=== PATIENT | female | born 2005 | race Two or more races ===

== ENCOUNTER 2024-12-22 15:53 | Emergency (ER) | payer MEDICAID, SELFPAY ==
[2024-12-22 16:06] VITALS: BP 119/67; PULSE 90
[2024-12-22 16:07] VITALS: BP 134/68; PULSE 90
[2024-12-22 16:09] VITALS: BP 134/66; PULSE 90; RESP 18; RESP 99; TEMP 36.9; BMI 38.6
[2024-12-22 16:20] VITALS: BP 132/61; PULSE 101
[2024-12-22 16:40] VITALS: RESP 20; TEMP 36.7; O2SAT 99
[2024-12-22 17:27] VITALS: BMI 38.6
[2024-12-22 18:13] VITALS: BP 123/78; PULSE 112; RESP 17; TEMP 36.8; O2SAT 98
--- NOTE | 2024-12-22 18:36 | EDNOTE_ITS ---
ED General RME/HPI General Chief complaint: General Adult/Misc Complain Stated complaint: MULTIPLE COMPLAINTS, + PREG SENT FROM [facility] Time Seen by Provider: 12/22/24 18:20 Arrival date/time: 12/22/24 17:25 RME / HPI RME / HPI narrative: 19-year-old female patient was sent to us from labor and delivery for evaluation regarding anxiety-like symptoms. Patient was doing shopping today and suddenly developed anxiety-like symptoms. Patient told me that she is having jittery, shortness of breath, palpitations, lasting for several minutes. Patient is currently not taking any anxiety medication. Patient is 36 weeks . Denies any abdominal pain vaginal bleeding spotting dysuria or other complaints. Patient was initially seen in labor and delivery and was cleared and sent to us. Currently patient is not having any symptoms. Patient is telling me that she is ready to go home. Related Data Home Medications ?Medication ?Instructions ?Recorded ?Confirmed vitamin-ferrous fumarate 1 tab PO QDAY 09/01/22 28 mg iron-folic acid 800 mcg tablet ( Vitamins with Minerals) ferrous sulfate 325 mg (65 mg 325 mg PO BID 09/02/22 0 09/02/22 iron) tablet (Iron (ferrous sulfate)) Previous Rx's ?Medication ?Instructions ?Recorded methylprednisolone 4 mg tablets in 4 mg PO .as directe d #21 tabs 12/14/23 a dose pack (Medrol (Cj)) triamcinolone acetonide 0.5 % 1 applic topical BID #15 grams 12/14/23 topical cream Allergies Allergy/AdvReac Type Severity Reaction Status Date / Time No Known Allergies Allergy Unverified 12/22/24 17:31 Review of Systems Review of Systems Narrative Review of Systems: Review of system reviewed and within normal limits except mentioned in HPI ED Exam Narrative Physical exam: VITAL SIGNS: Reviewed. GENERAL APPEARANCE: Alert and interactive, follows commands, no acute distress, HEAD AND FACE: Non-traumatic. ENT: PERRL, pink conjunctivitis, eyelid no trauma, Mucous membrane moist. NECK: Supple, nontender, no nuchal rigidity. CHEST: No tenderness, no crepitus, no paradoxical movement, no retractions. LUNGS: Clear, well ventilated, symmetric, no rales, no wheezing, no ronchi, no stridor, good breath sounds bilaterally. HEART: Regular rate, regular rhythm, no murmur, no gallops. ABDOMEN: Soft, positive bowel sounds, gravid abdomen, no guarding, nontender, no rebound, no masses, RECTAL: Deferred. GENITAL: Deferred. NEUROLOGICAL: Gross motor function intact sensory function intact, Appropriate for age. MUSCULOSKELETAL: low back nontender, full range of motion. EXTREMITIES: Nontender, full range of motion. SKIN: Color pink, dry, no rash, no lacerations, no abrasions, no contusions. LYMPHATICS: Deferred. Course Quality Measures none Vital Signs Vital signs: Vital Signs Temperature 98.2 F 12/22/24 18:13 Pulse Rate 112 H 12/22/24 18:13 Respiratory Rate 17 12/22/24 18:13 Blood Pressure 123/78 12/22/24 18:13 Pulse Oximetry (%) 98 12/22/24 18:13 Oxygen Delivery Method Room Air 12/22/24 18:13 Discharge Plan Plan Patient Disposition: HOME (Self Care) Discharge Disposition comment: Stable Prescriptions/Referrals Prescriptions/Med Rec: No Action vit-iron fum-folic ac [ Vitamin with Minerals] 28 mg iron- 800 mcg Tablet 1 tab PO QDAY ferrous sulfate [Iron (ferrous sulfate)] 325 mg (65 mg iron) Tablet 325 mg PO BID methylprednisolone [Medrol (Cj)] 4 mg tablets,dose pack 4 mg PO .as directed Qty: 21 0RF triamcinolone acetonide 0.5 % cream 1 applic topical BID Qty: 15 0RF Referrals: No Primary/Family,Physician [Primary Care Provider] - In 1 week Problem List Clinical Impression: and not yet delivered in third trimester, Anxiety Patient/Caregiver Discharge Instructions Discharge Activity: activity as tolerated Education Materials: ED Anxiety Reaction Additional Instructions: Thank you for the opportunity for serving you today. You are stable for discharged . You are advised to: Follow-up with your CAR [facility]ER in 1 to 2 days Return to ED for worsening of symptoms Increase oral fluids Take [id number] Benadryl as needed for your anxiety Print Language: Romanian Stand Alone Forms: Rosemarie Award Info., Patient Portal Info Letter TESFAYE/MOMO Supervising Physician STEPHEN Supervising Physician: MD Merry MDM Narrative MDM hospital course: 19-year-old female patient was sent to us from labor and delivery for evaluation regarding anxiety-like symptoms. Patient was doing shopping today and suddenly developed anxiety-like symptoms. Patient told me that she is having jittery, shortness of breath, palpitations, lasting for several minutes. Patient is currently not taking any anxiety medication. Patient is 36 weeks . Denies any abdominal pain vaginal bleeding spotting dysuria or other complaints. Patient was initially seen in labor and delivery and was cleared and sent to us. Currently patient is not having any symptoms. Patient is telling me that she is ready to go home. Imaging workup is not needed at this time patient is not having any symptoms on my initial evaluation. No recurrence of anxiety-like symptoms noted while in the emergency room. Patient was advised to take [id number] Benadryl for recurrence of symptoms. Patient is telling me that she is ready to go home. She was cleared from labor and delivery.
--- NOTE | 2024-12-22 19:00 | PC.NURSE ---
NO ANSWER FOR DC PAPERWORK
--- NOTE | 2024-12-22 19:30 | PC.NURSE ---
NO ANSWER FOR DC PAPERWORK
== END 2024-12-22 19:31 | disposition left against medical advice (07) ==
LOC: S4SX 16:16 → SERX 17:13 → S4SX 12-23 06:40
PROVIDERS: Emergency Provider Obstetrics & Gynecology; Referring Provider Obstetrics & Gynecology
DX: O99.343 Other mental disorders complicating pregnancy, third trimester (principal); Z3A.36 36 weeks gestation of pregnancy; F41.9 Anxiety disorder, unspecified
CPT/HCPCS: 59025; 99283

== ENCOUNTER 2024-12-28 10:55 | Outpatient (AMB) | payer MEDICAID, SELFPAY ==
[2024-12-28 11:47] VITALS: BP 113/73; PULSE 100; RESP 20; TEMP 36.6; O2SAT 98; BMI 37.7
--- NOTE | 2024-12-28 11:47 | OBCLNT_ITS ---
Vital Signs 12/28/24 11:47 Height 1.63 m Height Method Stated Weight 100.301 kg Weight Measurement Method Standing Scale BMI 37.7 BP 113/73 Blood Pressure Source Automatic Cuff Blood Pressure Location Left Upper Arm Position Sitting Respiration 20 Pulse 100 Pulse Source Monitor Temp 97.9 F Temp Source Oral Pulse Oximetry (%) 98 Oxygen Delivery Method Room Air Allergies/Home Meds Allergies & Medications Allergies No Known Allergies Allergy (Verified 12/28/24 11:48) Medication Reconciliation vitamin-ferrous fumarate 28 mg iron-folic acid 800 mcg tablet ( Vitamins with Minerals) 1 tab PO QDAY 09/01/22 [History Confirmed 12/28/24] ferrous sulfate 325 mg (65 mg iron) tablet (Iron (ferrous sulfate)) 325 mg PO BID 09/02/22 [History Confirmed 12/28/24] methylprednisolone 4 mg tablets in a dose pack (Medrol (Cj)) 4 mg PO .as directed #21 tabs 12/14/23 [Rx Confirmed 12/28/24] triamcinolone acetonide 0.5 % topical cream 1 applic topical BID #15 grams 12/14/23 [Rx Confirmed 12/28/24] Intake Visit Data Collection New Patient or Established: Established Patient (seen at [facility] within 3 years) Reason for Visit:: INITIAL CARE Seen by Clinical Staff ONLY (RN/MA): No Finished Goods Inspector Required: No Do You Feel Safe at Home: Yes Authorities Contacted: N/A PCP or OBGYN visit in last 3 months: Yes Hx Now: Yes Are you currently on any form of Control: No Pain Present Currently: Yes Pain Location: Abdomen (LOWER ABDOMEN) Pain Scale Used: High-Ladd/Numerical Pain scale:: 0 Smoking Status Smoking Status: Never smoker Questionnaires Covid-19 Vaccine Questionnaire Has patient been vacinated for Covid-19 Have you been vacinated for Covid-19: Yes PHQ-9 PHQ-2 Over the last 2 weeks, how often have you been bothered by any of the following problems? 1. Little interest or pleasure in doing things: not at all 2. Feeling down, depressed, or hopeless: not at all Total score: 0 PHQ-9 3. Trouble falling or staying asleep, or sleeping too much: Not at all 4. Feeling tired or having little energy: Not at all 5. Poor appetite or overeating: Not at all 6. Feeling bad about yourself - or that you are a failure or have let yourself or your family down: Not at all 7. Trouble concentrating on things, such as reading the newspaper or watching television: Not at all 8. Moving or speaking so slowly that other people could have noticed? - Or the opposite - being so fidgety or restless that you have been moving around a lot more than usual: not at all 9. Thoughts that you would be better off or of hurting yourself in some way: Not at all Total score: 0 Source: Developed by Drs. Benjamin Ewing, Eryn Villalta, Pedro Pablo Perez and colleagues, with an educational pradip from [employer]. 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: Past Medical History Past Medical History: No Hx Neurological Disorders, No Hx Cardiac Disorders, No Hx Cancer, No Hx Blood Disorders, No Hx Anemia, No Hx Gastrointestinal Disorders, No Hx Renal Disease, No Hx Diabetes Mellitus Type 1 and No Hx Diabetes Mellitus Type 2 OB Initial Visit Menstrual History Menstrual reliability: definite Flow: normal Menstrual regularity: regular Monthly: Yes Age at menarche: 11 On control pills at conception: No Associated symptoms (LMP): Reports fatigue OB History : 2 Para: 1 # of Living Children: 1 Delivery History 1st : Child's name: NIMA date: 12/28/24 sex: male Gestational age at delivery (weeks): 40 Delivery type: History of depression before or after : No Infection History & Risk Evaluation History of STDs: none Genetic Screening & History Genetic Screening/Teratology Counseling - Includes patient, baby's father, or anyone in either family with: 1. Patient's age 35 years or older as of estimated date of delivery: No 2. Thalassemia (Kiswahili, Cypriot, Mediterranean, or Background); MCV less than 80: No 3. Neural Tube Defect (Meningomyelocele, Spina Bifida, or Anencephaly): No 4. Congenital Heart Defect: No 5. Down Syndrome: No 6. Roman-Sachs (Ashkenazi Restorationism, Cajun, Green[place]ic [place]): No 7. Tobi Disease (Ashkenazi Restorationism): No 8. Familial Dysautonomia (Ashkenazi Restorationism): No 9. Sickle Cell Disease or Trait (): No 10. Hemophilia or other blood disorders: No 11. Muscular Dystrophy: No 12. Cystic Fibrosis: No 13. [place]'s Chorea: No 14. Mental Retardation/Autism: No 15. Other inherited genetic or chromosomal disorder: No 16. Maternal Metabolic Disorder (EG,TYPE 1 Diabetes, PKU): No 17. Patient or baby's father had a child with defects not listed above: No 18. Recurrent loss or a stillbirth: No 19. Medications (including supplements, vitamins, herbs or otc drugs)/illicit/recreational drugs/alcohol since last menstrual period: No 20. Any other: No Infection History 1. Live with someone with TB or exposed to TB: No 2. Rash or viral illness since last menstrual period: No 3. Hepatitis B,C: No Other (see comments) Source: [employer] Review of Systems Constitutional Constitutional: Reports fatigue Endocrine Endocrine: Reports fatigue Office Procedures OB Clinic LOC & Office Proc's Nursing/Assessment Patient Status: Established Patient OB Clinic Nursing Assessment: Medication Reconciliation, Update PMH in EMR and Vital Signs OB Clinic Coordination of Care: Complex Care and Chronic Disease 1-5, Consent,records obtained, informed consent, Education Simp Pt/Fam, 1 Ins Authorization, Lab and Imaging orders, Results/Orders obtained and Staff clarify orders Special Needs: Heart tones Established Patient Charge Established Patient Point Assignment: 150 Established Patient Point Charge: EP Level 4 (120-155) Assessment & Plan Diagnosis / Problem List (1) Maternal care for low transverse scar from previous delivery: Status: Acute (2) Supervision of high risk , unspecified, third trimester: Status: Acute
== END 2024-12-28 12:23 | disposition home or self-care (01) ==
LOC: HODSOBC 10:55
PROVIDERS: Supervising Provider Obstetrics & Gynecology; Visit Provider Obstetrics & Gynecology
DX: O09.293 Supervision of pregnancy with other poor reproductive or obstetric history, third trimester (principal); O34.211 Maternal care for low transverse scar from previous cesarean delivery
CPT/HCPCS: 99214; G0463

== ENCOUNTER 2025-01-10 09:06 | Outpatient (AMB) | payer MEDICAID, SELFPAY ==
[2025-01-10 09:11] VITALS: BP 113/76; PULSE 99; RESP 17; TEMP 36.4; O2SAT 96; BMI 38.3
--- NOTE | 2025-01-10 09:11 | OBCLNT_ITS ---
Vital Signs 01/10/25 09:11 Height 1.63 m Height Method Measured Weight 101.831 kg Weight Measurement Method Standing Scale BMI 38.3 BP 113/76 Blood Pressure Source Automatic Cuff Blood Pressure Location Right Upper Arm Position Sitting Respiration 17 Pulse 99 Pulse Source Monitor Temp 97.6 F Temp Source Temporal Artery Scan Pulse Oximetry (%) 96 Oxygen Delivery Method Room Air Allergies/Home Meds Allergies & Medications Allergies No Known Allergies Allergy (Verified 12/28/24 11:48) Intake Visit Data Collection New Patient or Established: Established Patient (seen at [facility] within 3 years) Reason for Visit:: OBC FOLLOW UP Seen by Clinical Staff ONLY (RN/MA): No Supervisor Assembling Required: No Do You Feel Safe at Home: Yes Authorities Contacted: N/A PCP or OBGYN visit in last 3 months: Yes Date of Last PCP or OBGYN visit: 12/28/24 Hx Now: Yes Are you currently on any form of Control: No Pain Present Currently: No Smoking Status Smoking Status: Never smoker Questionnaires PHQ-9 PHQ-2 Over the last 2 weeks, how often have you been bothered by any of the following problems? 1. Little interest or pleasure in doing things: not at all PHQ-9 8. Moving or speaking so slowly that other people could have noticed? - Or the opposite - being so fidgety or restless that you have been moving around a lot more than usual: not at all Source: Developed by Drs. Benjamin Ewing, Eryn Villalta, Pedro Pablo Perez and colleagues, with an educational pradip from [employer]. 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 Denies VALADEZ, VC, and epigastric pain. - Diana Randle is a patient at 38 weeks and 5 days gestation, scheduled for a section in 2 days. - is scheduled for at 12:30 PM. - Patient is instructed to check in at 10:30 AM through the main entrance. - heart rate was noted to be 148 bpm, which was described as normal. Plan - scheduled for at 12 :30 PM - Patient to check in at 10:30 AM on the day of surgery - Patient to enter through main entrance and go to registration for MARCI Calculator Estimated Delivery Date Method Current WG Current Estimate 01/19/25 LMP (Certain) 38w 5d Other Estimates 01/19/25 Ultrasound #1 38w 5d Office Procedures OB Clinic LOC & Office Proc's Nursing/Assessment Patient Status: Established Patient OB Clinic Nursing Assessment: Medication Reconciliation, Update PMH in EMR and Vital Signs OB Clinic Coordination of Care: Complex Care and Chronic Disease 1-5, Education Complex Pt/Fam, Consent,records obtained, informed consent, 1 Ins Authorization, Lab and Imaging orders and Results/Orders obtained Special Needs: Heart tones Established Patient Charge Established Patient Point Assignment: 145 Established Patient Point Charge: EP Level 4 (120-155) Assessment & Plan Diagnosis / Problem List (1) Supervision of high risk , unspecified, third trimester: Status: Acute (2) Maternal care for low transverse scar from previous delivery: Status: Acute Plan Problem List - , 38 weeks and 5 days Assessment at 38 weeks and 5 days gestation, scheduled for section in 2 days. heart rate auscultated at 148 bpm, which is within normal limits. Patient is aware of the procedure date and time, with the scheduled for at 12:30 PM, requiring check-in at 10:30 AM. Plan - scheduled for at 12:30 PM - Patient to check in at 10:30 AM on the day of surgery - Patient to enter through main entrance and go to registration for 1. Progress Reviewed gestational age, growth, and heart rate. Planned frequent visits (every 2 weeks until 36 weeks, then weekly). 2. Instructed patient to monitor movements and report decreases immediately. 3. Testing Counseled on routine third-trimester labs per guidelines. Discussed potential need for ultrasound or monitoring based on risk factors. 4. Preeclampsia Precaution Educated on preeclampsia signs: severe headache, vision changes, right upper quadrant pain, sudden swelling. Advised urgent reporting of symptoms and discussed blood pressure monitoring if high risk. 5. Labor Precautions Reviewed labor signs: regular contractions, pelvic pressure, back pain, bleeding, or fluid leakage. Instructed to seek immediate care for these symptoms. 6. Lifestyle and Delivery Preparation Reinforced vitamins, nutrition, and safe activity. Discussed plan, pain management, and . Advised on labor preparation (e.g., hospital bag) and expectations. 7. Psychosocial Support Assessed emotional well-being and offered resources for mental health or parenting support.
== END 2025-01-10 10:14 | disposition home or self-care (01) ==
LOC: HODSOBC 09:06
PROVIDERS: Supervising Provider Obstetrics & Gynecology; Visit Provider Obstetrics & Gynecology
DX: O09.293 Supervision of pregnancy with other poor reproductive or obstetric history, third trimester (principal); O34.211 Maternal care for low transverse scar from previous cesarean delivery; Z3A.38 38 weeks gestation of pregnancy
CPT/HCPCS: 99214; G0463

== ENCOUNTER 2025-01-12 10:23 | Inpatient (IN) | payer MEDICAID, SELFPAY ==
[2025-01-12] VITALS (19 sets, daily range): BP systolic 90–117; BP diastolic 60–76; PULSE 68–112; RESP 12–19; TEMP 36.8–36.9; O2SAT 95–100; BMI 38.4
[2025-01-12] MEDS: RINGERS LACTATED 1000 ML 1,000 ML 100 ML IV (11:00)
--- NOTE | 2025-01-12 11:01 | PD.LDHP ---
Documentation for date of: 01/12/25 OB Labor/Induct. HPI History of Present Illness Chief complaint: Repeat : 2 Para: 1 Term pregnancies: 1 pregnancies: 0 Living children: 1 History of Abortions: Spontaneous and Elective: 0 History of sections: No History of : No History of present illness: Diana Randle is a 20-year-old 2 para 1001 at 39 weeks and 0 days gestation presenting for scheduled repeat low transverse section. She has a history of one previous section and severe anxiety that was precipitated after a traumatic experience during her last delivery. The patient's current has an estimated due date of January 19, 2025, based on last menstrual period that is consistent with her 18-week and 5-day ultrasound. She has expressed a desire to go to sleep during her section. Her anxiety was triggered 4 years ago following a family loss. She currently receives medication for anxiety and takes zolpidem as needed. She has a history of one previous section delivery with traumatic experience that precipitated severe anxiety. The patient notes that her anxiety was triggered 4 years ago following a family loss. The patient has been taking Visceral for anxiety and zolpidem as needed. She expresses anxiety about the upcoming procedure due to her traumatic experience during her previous delivery. She is a 20-year-old female with an obstetric history of G2 T1 L1. Her current is at 39 weeks and 0 days gestation with an estimated due date of January 19, 2025. ROS: Psychiatric: Positive for severe anxiety. Diagnostic Test Results and Labs: - Initial labs: - Blood group: O positive - Rubella: Immune - RPR: Nonreactive - HIV: Negative - Hepatitis B: Negative - Gonorrhea: Negative - Chlamydia: Negative - NIPT: Negative - Hemoglobin A1c: 5.0 - 18-week ultrasound: Consistent with LMP, estimated due date January 19, 2025 Past Medical History Surgical History SURGICAL: Negative Section Meds Home Medications and Allergies Home Medications ?Medication ?Instructions ?Recorded ?Confirmed ?Type vitamin-ferrous fumarate 1 tab PO QDAY 09/01/22 01/12/25 History 28 mg iron-folic acid 800 mcg tablet ( Vitamins with Minerals) ferrous sulfate 325 mg (65 mg 325 mg PO BID 09/02/22 01/12/25 History iron) tablet (Iron (ferrous sulfate)) Allergies Allergy/AdvReac Type Severity Reaction Status Date / Time No Known Allergies Allergy Verified 01/12/25 12:11 OB Exam Constitutional Constitutional: no acute distress Routine HEENT Exam Head: Present normocephalic and atraumatic Eye: Present EOMI and PERRL ENT: Present mucous membranes moist Routine Neck Exam Neck: Present supple and trachea midline Routine Cardiovascular Exam Cardiovascular: Present RRR Routine Abdominal Exam Abdominal: Present soft and normoactive bowel sounds Detailed Labor and Delivery Exam Dilation (cm): 0 Baseline heart rate: 145 monitor accelerations: 15x15 monitor decelerations: None 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 - History of one previous section. - Current uncomplicated with normal labs including blood group O positive, rubella immune, RPR nonreactive, HIV negative, hepatitis B negative, gonorrhea and chlamydia negative, NIPT negative, and A1C of 5.0. Plan: - Admit to inpatient for repeat low transverse section. - IV access with lactated Ringer's at 125 cc per hour. - Ancef for surgical prophylaxis. - Sequential compression devices for DVT prophylaxis. - External monitoring. - Preoperative medications including Pepcid and Bicitra as indicated. - Obtain preoperative labs including CBC, type and screen, and coagulation profile. Severe Anxiety: - Severe anxiety precipitated after traumatic experience during last delivery. - Anxiety triggered 4 years ago following family loss. - Patient desires general anesthesia during section. - Currently receives zolpidem as needed for anxiety. Plan: - Continue current anxiety medications. (2) Supervision of high risk , unspecified, third trimester: Status: Acute
[2025-01-12 12:04] LABS: Basophils # (Auto) 0.0 Thou/mm3 (0.0-0.2); Basophils % (Auto) 0 % (0-2.5); Eosinophils # (Auto) 0.0 Thou/mm3 (0.0-0.5); Eosinophils % (Auto) 0 % (0-10); Hematocrit 28.4 % (36.0-46.0); Hemoglobin 9.0 g/dL (12.0-16.0); Immature Granulocytes Auto 0.03 Thou/mm3 (0.00-0.00); Lymphocytes # (Auto) 2.2 Thou/mm3 (1.0-4.8); Lymphocytes % (Auto) 24 % (10-50); Mean Corpuscular HGB Conc 31.7 g/dl (31.0-37.0); Mean Corpuscular Hemoglobin 23.4 pg (25.0-35.0); Mean Corpuscular Volume 74 fL (80-100); Monocytes # (Auto) 0.6 Thou/mm3 (0.0-0.8); Monocytes % (Auto) 7 % (0-12); Neutrophils # (Auto) 6.3 Thou/mm3 (1.8-7.7); Neutrophils % (Auto) 69 % (37-80); Nucleated Red Blood Cell # 0.00 Thou/mm3 (0.00-0.00); Nucleated Red Blood Cell % 0 /100 WBC (0); Platelet Count 274 Thou/mm3 (140-440); RDW Standard Deviation 45.7 fL (36.4-46.3); Red Blood Count 3.85 Miln/mm3 (4.00-5.20); White Blood Count 9.1 Thou/mm3 (4.5-11.0)
[2025-01-12] MEDS: FAMOTIDINE INJ 10 MG/ML VIAL 2 ML 20 MG IV (12:27)
[2025-01-12] MEDS: ceFAZolin/D5W 2 GM IV 2 GM/100 ML BAG IV (12:28)
[2025-01-12 12:41] LABS: Syphilis Nonreactive (Nonreactive)
[2025-01-12 13:10] LABS: Fibrinogen 432 mg/dL (175-375); INR 1.0 (0.9-1.3); Partial Thromboplastin Time 24.0 Seconds (22.0-36.0); Prothrombin Time 10.5 Seconds (9.0-12.2)
--- NOTE | 2025-01-12 13:37 | ESOP_ITS ---
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 Identity was confirmed by double identifiers and she was placed on the operating table. Spinal anesthesia was administered and she was positioned in the supine position. The abdomen and perineum were prepped in the usual sterile fashion and a Li catheter was placed to continuous drainage. Sterile drapes were applied. The incision site was tested for adequacy of anesthesia. A Pfannenstiel skin incision was made with a scalpel and carried to the subcutaneous fat up to the rectus fascia. The rectus fascia was incised on either side of the midline and the incisions were extended bilaterally. The fascia was gently dissected off the ventral surface of the rectus muscle both superiorly and inferiorly. The rectus bellies were gently in the midline and the peritoneum was identified and entered bluntly using the surgeon's finger. The peritoneal opening was now stretched to create an adequate opening for access to the uterus. Sunny O-ring retractor was placed for adequate visualization. The anterior surface of the uterus was palpated. The bladder reflection was identified and a Darcie Oleary low transverse uterine incision was made in the lower uterine segment taking care to avoid the bladder. Uterine entry was accomplished bluntly and the opening was stretched to create adequate room. The amniotic membranes were now ruptured and clear amniotic fluid was released. The fetus was noted to be in the vertex position. The head was gently elevated out of the maternal pelvis and the rest of the shoulders and body were delivered by gentle fundal pressure. Umbilical cord was doubly clamped, divided and the was handed over to the waiting team. Cord gas samples were obtained. The placenta was delivered by gentle traction on the umbilical cord. The interior of the uterus was now thoroughly cleaned of all blood and debris and membranes. The hysterotomy angles were grasped by a pair of Allis clamps and the hysterotomy was closed using 1 Monocryl suture in 2 layers. The first layer was used to approximate the muscle in a running locked fashion, the second layer was used to approximate the thickness of the myometrium and uterine serosa in an imbricated manner. Once the repair was completed the hysterotomy was inspected and noted to be adequately hemostatic. The hysterotomy was once again inspected and hemostasis was noted to be satisfactory. The Sunny retractor was now removed. The peritoneal edges were re approximated. The rectus muscles were re approximated. The rectus fascia was now repaired using 0 Vicryl suture in a running fashion. The subcutaneous layer was now copiously irrigated using warm normal saline. All bleeding points were cauterized using the Bovie. The subcutaneous fat was closed using 3-0 Vicryl. The skin was closed using 4-0 Monocryl in a subcuticular fashion. The skin was cleaned and a sterile dressing was applied. The patient was now undraped, the abdomen and back were thoroughly cleaned and she was transferred to the recovery room in a stable and awake condition. The patient tolerated the entire procedure well. No complications were encountered. All instrument, sponge and lap counts were correct x2. Estimated blood loss (ml): 600 Complications: none Surgical staff Operation Date: 01/12/25 12:45 <No data on this case meets the specified criteria> Diagnosis Discharge Diagnosis (1) Supervision of high risk , unspecified, third trimester: Status: Acute (2) Maternal care for low transverse scar from previous delivery: Status: Acute Problem List Completed Was Problem List Reviewed/Reconciled?: Yes
--- NOTE | 2025-01-12 13:38 | PD.LDDELS ---
Data (Kang) Data Hx Section: No : 2 Term: 1 : 0 Livin Abortions: Spontaneous & Theraputic: 0 Delivery Data (Kang) Delivery Data Delivered by: Sherman Rodriguez Anesthesia Type Anesthesia type: Spinal
[2025-01-12] MEDS: KETOROLAC INJ 30 MG/ML VIAL IVP (14:43)
[2025-01-12] MEDS: ONDANSETRON INJ 2 MG/ML INJ 2 ML 4 MG IV (16:27)
[2025-01-12] MEDS: OXYTOCIN in NS 20 units 20 UNIT/1,000 ML BAG 125 UNIT IV (18:21)
[2025-01-13 00:05] VITALS: BP 112/70; PULSE 82; RESP 18; TEMP 36.7; O2SAT 99
[2025-01-13] MEDS: HYDROcodone/APAP 5/325 TABLET 1 TAB PO ×2 (01:02→14:47)
[2025-01-13] MEDS: RINGERS LACTATED 1000 ML 1,000 ML 125 ML IV (03:07)
[2025-01-13 04:05] VITALS: BP 112/73; PULSE 78; RESP 18; TEMP 36.8; O2SAT 99
[2025-01-13 06:14] LABS: Basophils # (Auto) 0.0 Thou/mm3 (0.0-0.2); Basophils % (Auto) 0 % (0-2.5); Eosinophils # (Auto) 0.0 Thou/mm3 (0.0-0.5); Eosinophils % (Auto) 0 % (0-10); Hematocrit 27.5 % (36.0-46.0); Immature Granulocytes Auto 0.03 Thou/mm3 (0.00-0.00); Lymphocytes # (Auto) 2.2 Thou/mm3 (1.0-4.8); Lymphocytes % (Auto) 19 % (10-50); Mean Corpuscular HGB Conc 30.9 g/dl (31.0-37.0); Mean Corpuscular Hemoglobin 23.5 pg (25.0-35.0); Mean Corpuscular Volume 76 fL (80-100); Monocytes # (Auto) 0.7 Thou/mm3 (0.0-0.8); Monocytes % (Auto) 6 % (0-12); Neutrophils # (Auto) 8.4 Thou/mm3 (1.8-7.7); Neutrophils % (Auto) 74 % (37-80); Nucleated Red Blood Cell # 0.00 Thou/mm3 (0.00-0.00); Nucleated Red Blood Cell % 0 /100 WBC (0); Platelet Count 252 Thou/mm3 (140-440); RDW Standard Deviation 46.7 fL (36.4-46.3); Red Blood Count 3.62 Miln/mm3 (4.00-5.20); White Blood Count 11.4 Thou/mm3 (4.5-11.0)
[2025-01-13 06:21] LABS: Hemoglobin 8.5 g/dL (12.0-16.0)
--- NOTE | 2025-01-13 06:39 | PC.NURSE ---
Patient tried to urinate in the toilet but was not able. Patient's mom called for a nurse to check her daughter (the patient) stating that she almost pass out . Barbara (charge nurse) went into the room to check the patient. Patient put on bed treviño and still unable to pee after. Li catheter was inserted around 6:00 am and had 800 ml urine output. was notified and ordered to let the catheter stay till 12 noon today (Jan 13, 2025)
[2025-01-13 08:00] VITALS: BP 119/75; PULSE 85; RESP 16; TEMP 36.7; O2SAT 99
[2025-01-13] MEDS: DOCUSATE SOD 100 MG CAPSULE PO (08:28)
[2025-01-13] MEDS: FERRIC SOD GLUC INJ 125 MG in SODIUM CHLORIDE 0.9% 100 ML 110 MG IV (08:28)
[2025-01-13] MEDS: KETOROLAC INJ 30 MG/ML VIAL IVP (08:37)
[2025-01-13 12:00] VITALS: BP 114/74; PULSE 86; RESP 14; TEMP 36.9; O2SAT 97
--- NOTE | 2025-01-13 18:17 | PD.LDPPPRG ---
Subjective Subjective Interval history: The patient is a 19-year-old -0-0-2 status post scheduled repeat with Dr. Doll at 1330 yesterday. She had an uncomplicated . Apparently when they removed her catheter she went up to try to void and sat on the toilet for 40 minutes per patient and felt dizzy and had a near syncopal episode. Patient could not void they put her catheter back in. I rounded on it this morning around 8 in the morning her mother was at bedside quite concerned that the patient will pass out again. The patient is tired but she wakes up she is tolerating bites of general diet her Il is in place draining copious amounts of clear urine. Her predelivery hemoglobin is only 9 postdelivery hemoglobin is 8.5 I will check another 1 tomorrow. I am going to order IV iron. Patient is bottlefeeding. Exam Vital Signs Temp Pulse Resp BP Pulse Ox O2 Del Method 98.5 F 86 14 114/74 97 Room Air 01/13/25 12:00 01/13/25 12:00 01/13/25 12:00 01/13/25 12:00 01/13/25 12:00 01/13/25 12:00 Narrative Exam Patient is pale alert oriented otherwise in no apparent distress fundus is firm at umbilicus dressing is clean dry and intact. Extremities show no significant edema or erythema. Objective Labs 01/13/25 05:15 Labs: Laboratory Results - last 24 hr 01/13/25 05:15 WBC 11.4 H RBC 3.62 L Hgb 8.5 L Hct 27.5 L MCV 76 L MCH 23.5 L MCHC 30.9 L RDW Std Deviation 46.7 H Plt Count 252 Neut % (Auto) 74 Lymph % (Auto) 19 [place] % (Auto) 6 Eos % (Auto) 0 Baso % (Auto) 0 Neut # (Auto) 8.4 H Lymph # (Auto) 2.2 [place] # (Auto) 0.7 Eos # (Auto) 0.0 Baso # (Auto) 0.0 Immature Gran # (Auto) 0.03 H Absolute Nucleated RBC 0.00 Immature Gran % 0 Nucleated RBC % 0 Assessment & Plan Problem List (1) Maternal care for low transverse scar from previous delivery: Problem details: DC Li. Sit at edge of bed before discontinuing. Ambulate to the chair and around the room before discontinuing. Encourage oral intake. Encouraged general diet. Status: Acute (2) Morbid obesity: Status: Acute (3) care following delivery: Status: Acute (4) Anemia affecting in third trimester: Problem details: Recheck CBC in the morning. Ordered IV iron today and tomorrow. Status: Acute Time Spent With Patient Time: Total time spent is greater than 50% in coordination of care (as documented) at patient's floor/unit and/or counseling patient: Time with patient: less than 15 minutes
[2025-01-13] MEDS: IBUPROFEN TAB 400 MG TABLET 800 MG PO (18:34)
[2025-01-13 20:00] VITALS: BP 104/59; PULSE 120; RESP 18; TEMP 36.7; O2SAT 97
[2025-01-14 04:16] VITALS: BP 111/72; PULSE 89; RESP 18; TEMP 36.6; O2SAT 98
[2025-01-14] MEDS: IBUPROFEN TAB 400 MG TABLET 800 MG PO (04:25)
[2025-01-14 06:41] LABS: Basophils # (Auto) 0.0 Thou/mm3 (0.0-0.2); Basophils % (Auto) 0 % (0-2.5); Eosinophils # (Auto) 0.1 Thou/mm3 (0.0-0.5); Eosinophils % (Auto) 1 % (0-10); Hematocrit 24.7 % (36.0-46.0); Immature Granulocytes Auto 0.04 Thou/mm3 (0.00-0.00); Lymphocytes # (Auto) 2.5 Thou/mm3 (1.0-4.8); Lymphocytes % (Auto) 25 % (10-50); Mean Corpuscular HGB Conc 30.4 g/dl (31.0-37.0); Mean Corpuscular Hemoglobin 23.1 pg (25.0-35.0); Mean Corpuscular Volume 76 fL (80-100); Monocytes # (Auto) 0.8 Thou/mm3 (0.0-0.8); Monocytes % (Auto) 8 % (0-12); Neutrophils # (Auto) 6.5 Thou/mm3 (1.8-7.7); Neutrophils % (Auto) 65 % (37-80); Nucleated Red Blood Cell # 0.00 Thou/mm3 (0.00-0.00); Nucleated Red Blood Cell % 0 /100 WBC (0); Platelet Count 232 Thou/mm3 (140-440); RDW Standard Deviation 47.8 fL (36.4-46.3); Red Blood Count 3.25 Miln/mm3 (4.00-5.20); White Blood Count 9.9 Thou/mm3 (4.5-11.0)
[2025-01-14 06:59] LABS: Hemoglobin 7.5 g/dL (12.0-16.0)
[2025-01-14 07:10] VITALS: BP 115/71; PULSE 85; RESP 17; TEMP 36.7; O2SAT 98
--- NOTE | 2025-01-14 08:00 | PC.NURSE ---
Dr. Goodson made aware of cbc no new orders
[2025-01-14] MEDS: FERRIC SOD GLUC INJ 125 MG in SODIUM CHLORIDE 0.9% 100 ML 110 MG IV (09:57)
--- NOTE | 2025-01-14 10:10 | ESDS_ITS ---
DS: Providers Provider Date of admission: 01/12/25 10:23 Primary care physician: Physician No Primary/Family Admitting Provider: Ajith Doll MD Attending Provider on Admission: Yue Goodson MD Consults: 01/12/25 14:38 Referral Routine Comment: Attending Provider on DC: Yue Goodson MD Discharging Provider: Yue Goodson MD DS: Diagnosis Discharge Diagnosis (1) care following delivery: Status: Acute (2) Supervision of high risk , unspecified, third trimester: Status: Acute (3) Maternal care for low transverse scar from previous delivery: Status: Acute (4) Morbid obesity: Status: Acute (5) Late care: Status: Acute (6) Anemia affecting in third trimester: Status: Acute (7) with 39 completed weeks gestation: Status: Acute Problem List Completed Was Problem List Reviewed/Reconciled?: Yes Summary/Hosp Course Brief History: Diana Randle is a 20-year-old 2 para 1001 at 39 weeks and 0 days gestation presenting for scheduled repeat low transverse section. She has a history of one previous section and severe anxiety that was precipitated after a traumatic experience during her last delivery. The patient's current has an estimated due date of January 19, 2025, based on last menstrual period that is consistent with her 18-week and 5-day ultrasound. She has expressed a desire to go to sleep during her section. Her anxiety was triggered 4 years ago following a family loss. She currently receives medication for anxiety and takes zolpidem as needed. She has a history of one previous section delivery with traumatic experience that precipitated severe anxiety. The patient notes that her anxiety was triggered 4 years ago following a family loss. The patient has been taking Visceral for anxiety and zolpidem as needed. She expresses anxiety about the upcoming procedure due to her traumatic experience during her previous delivery. She is a 20-year-old female with an obstetric history of G2 T1 L1. Her current is at 39 weeks and 0 days gestation with an estimated due date of January 19, 2025. ROS: Psychiatric: Positive for severe anxiety. Diagnostic Test Results and Labs: - Initial labs: - Blood group: O positive - Rubella: Immune - RPR: Nonreactive - HIV: Negative - Hepatitis B: Negative - Gonorrhea: Negative - Chlamydia: Negative - NIPT: Negative - Hemoglobin A1c: 5.0 - 18-week ultrasound: Consistent with LMP, estimated due date January 19, 2025 -- Diana is doing well on POD 2 s/p uncomplicated scheduled repeat section. She has had an uncomplicated post-operative course, meeting all milestones and feels ready for discharge home. She is ambulating without lightheadedness, tolerating regular diet no n/v, spontaneously voiding without issue. She has no chest pain or shortness of breath. No fevers or chills. Pain well controlled. Vitals normal, benign exam. Hemodynamically stable with no evidence of infection. Post-op Hgb 7.5 from starting 9. She has no sx of anemia. Received 2 doses of IV iron and will continue on oral iron. Peripartum Data Delivery Method: Low Transverse Episiotomy Description: None Procedures: Procedures Operation Date: 01/12/25 12:45 Actual Procedure Side Surgeon p in OB Not Applicable Ajith Doll MD Status at Discharge Functional status at discharge: independent ambulation Overall status at discharge: patient is back to baseline Time Spent with Patient Time attestation: Total time spent providing and/or coordinating discharge services: Exam Vital Signs Temp Pulse Resp BP Pulse Ox O2 Del Method 98.1 F 85 17 115/71 98 Room Air 01/14/25 07:10 01/14/25 07:10 01/14/25 07:10 01/14/25 07:10 01/14/25 07:10 01/14/25 07:10 Narrative Exam General: well developed, well nourished, no acute distress, conversant Cardiac: normal heart rate Lungs: breathing without distress Abdomen: soft, post-gravid, non-tender, no rebound or guarding, pfannenstiel incision covered by dry/clean/intact prineo bandage. Incision well reapproximated. No erythema, drainage or induration. Fundus firm at u-2cm. Extremities: no pain with palpation of calves, trace edema of BLE Discharge Plan Plan Patient Disposition: HOME (Self Care) Patient condition on transfer: Stable Prescriptions/Referrals Prescriptions/Med Rec: New hydrocodone-acetaminophen 5-325 mg Tablet 1 tab PO Q6H MDD 4 tablets PRN (Reason: Patient rated pain 7 to 8) 7 Days Qty: 10 0RF docusate sodium 100 mg Capsule 100 mg PO BID 14 Days Qty: 28 0RF ibuprofen 800 mg tablet 800 mg PO Q8HR PRN (Reason: Pain Scale 4-6 (Moderate) 10 Days Qty: 30 0RF ferrous sulfate 325 mg (65 mg iron) tablet 325 mg PO QDAY Qty: 60 0RF Continued hydroxyzine HCl 10 mg tablet 10 mg PO TID PRN (Reason: anxiety) Qty: 20 0RF vit-iron fum-folic ac [ Vitamin with Minerals] 28 mg iron- 800 mcg Tablet 1 tab PO QDAY triamcinolone acetonide 0.5 % cream 1 applic topical BID Qty: 15 0RF Discontinued ferrous sulfate [Iron (ferrous sulfate)] 325 mg (65 mg iron) Tablet 325 mg PO BID methylprednisolone [Medrol (Cj)] 4 mg tablets,dose pack 4 mg PO .as directed Qty: 21 0RF Referrals: No Primary/Family,Physician [Primary Care Provider] Patient/Caregiver Discharge Instructions Discharge Activity: activity as tolerated and other Other Discharge Activity Instructions:: Vaginal rest and no heavy lifting more than 10 pounds for 6 weeks. keep incision clean and dry, do not submerge. no driving while taking narcotic. Education Materials: Breast Care After , After a , C Section Dc Print Language: Brazilian Activity Restrictions/Additional Instructions: follow up with Dr. Doll in 1 to 2 weeks for incision check, call clinic to schedule appointment Stand Alone Forms: Rosemarie Umaña Info., Patient Portal Info Letter Discharge Order Discharge Orders: Discharge (Routine); Ordered 01/14/25 Ordered By: Yue Goodson Planned Discharge Date 01/14/25
--- NOTE | 2025-01-14 12:29 | PC.SS ---
Patient cleared by Meera in social security benefits interviewer
--- NOTE | 2025-01-14 15:17 | PC.CC ---
Diana Randle is a 19-year-old female admitted for labor and delivery care. Clinical Director made contact with Pt at bedside to complete ob assessment and discuss discharge disposition. Role and reason for the contact was explained to Pt. Demographic information was verified. Pt identified father of baby Ilya Jimenez [phone] as surrogate decision maker. Pt is independent with all ADLs, no source of DME. PCP is [facility]. At time of discharge patient will return home, family will provide transportation. Mother plans on formula feeing, has car seat, and all supplies for baby. Mother denies any use of substance, no DV, no CPS. Mother reports hx of anxiety and received support from PCP. Mother denied resources. Mother reports support system provided by extended family and FOB. Discharge Plan: Home Next of Kin: Ilya Jimenez [phone] PCP: [facility]
== END 2025-01-14 12:30 | disposition home or self-care (01) | DRG 540 ==
LOC: S4SX 10:30 → S4NX 12:48
PROVIDERS: Obstetrics & Gynecology; Admitting Provider Obstetrics & Gynecology; Visit Provider Obstetrics & Gynecology
PROC: 10D00Z1 Extraction of Products of Conception, Low, Open Approach (ICD-10-PCS; CPT 59514; principal; 2025-01-12 12:30)
DX: O34.211 Maternal care for low transverse scar from previous cesarean delivery (principal); O99.344 Other mental disorders complicating childbirth; F41.9 Anxiety disorder, unspecified; Z37.0 Single live birth; Z3A.39 39 weeks gestation of pregnancy; O99.214 Obesity complicating childbirth; E66.01 Morbid (severe) obesity due to excess calories; O99.02 Anemia complicating childbirth
CPT/HCPCS: 36415; 85025; 85384; 85610; 85730; 86780; 86850; 86900; 86901; A4217; A4314; A4649; J0689; J1885; J2250; J2274; J2371; J2405; J2590; J2916; J3490; J7050; J7120; A9270; J2270